=== PATIENT | male | born 1970 | race Caucasian/White ===

== ENCOUNTER 2016-11-28 16:04 | Inpatient (IN) ==
[2016-11-28 16:35] LABS: Basophils # 0.1 10*3/uL (0.0-0.2); Basophils % 0.3 % (0.0-0.8); Eosinophils % 0.1 % (0.00-10.9); Hematocrit 49.8 VOL% (42.0-52.0); Hemoglobin 16.9 GM/DL (14.0-18.0); Immature Granulocytes % 0.6 %; Immature Granulocytes Absolute 0.12 #; Lymphocytes # 2.3 10*3/uL (1.4-4.0); Lymphocytes % 11.6 % (21.2-54.2); Mean Corpuscular HGB Conc 33.9 GM/DL (32-36); Mean Corpuscular Hemoglobin 33 PG (27-34); Mean Corpuscular Volume 97.6 FL (87-102); Mean Platelet Volume 9.3 FL (9.6-12.0); Monocytes # 1.2 10*3/uL (0.11-0.8); Monocytes % 6.3 % (1.7-12.7); Neutrophils # 15.8 10*3/uL (1.4-7.4); Neutrophils % 81.1 % (38.7-73.9); Platelet Count 236 T/CUMM (130-400); Red Cell Distribution Width 12.5 % (9.3-17.3); White Blood Count 19.5 T/CUMM (4-12)
[2016-11-28 16:55] LABS: Apearance,Urine CLOUDY (Clear); Bacteria,Urine Occasional /HPF (Few); Bilirubin,Urine Negative (Negative); Blood, Urine Negative (Negative); Glucose,Urine (UA) 50 mg/dL (Negative); Hyaline Casts,Urine 8 /LPF (0-3); Ketones,Urine 5 mg/dL (Negative); Mucus,Urine Occasional /LPF (Occasional); Nitrite,Urine Negative (Negative); Protein,Urine 30 MG/DL; RBC,Urine 2 /HPF (0-4); Squamous Epithelial Cell,Urine Occasional /HPF (0-10); Urine Color Amber (Yellow); Urine Specific Gravity 1.029 (1.001-1.035); Urine Urobilinogen < 2.0 EU/DL (0.2-1.0); WBC,Urine 5 /HPF (0-6)
[2016-11-28 17:00] LABS: Bilirubin,Total 1.2 MG/DL (0.2-1.0); Calcium 9.7 MG/DL (8.5-10.1); Lactic Acid 1.1 MMOL/L (0.4-2.0); Magnesium 2.9 MG/DL (1.8-2.4); Osmolality,Calculated 284.7 MOS/KG (273-304); Potassium 3.9 MMOL/L (3.5-5.1); Total Protein 8.6 G/DL (6.4-8.3)
[2016-11-28] MEDS ORDERED: SODIUM CHLORIDE 0.9% 2,000 ML IV STA (17:24)
[2016-11-28] MEDS ORDERED: AMPICILLIN/SULBACTAM 3,000 MG in SODIUM CHLORIDE 0.9% 100 ML IV STA (17:33)
--- NOTE | 2016-11-28 17:39 | XRay Report ---
Referring Physician: Rudolph Smith Exam: XR abdomen 2V Date: November 28, 2016 at 5:24 PM Reason: Generalized abdominal pain Comparison: None Findings: There is mild scattered air within the bowel, mainly within the colon. Air-fluid levels are also present. This could reflect enteritis, but there is no evidence of bowel obstruction. No free air is identified. The renal shadows are partially obscured, but no definite renal calculi are identified. No acute osseous process is seen. Impression: There is mild gaseous distention of the bowel, mainly the colon. Air-fluid levels are also seen at the bowel, and this could represent enteritis. There is no evidence of bowel obstruction. PROCEDURE INTERPRETED AT [facility] DEPARTMENT OF RADIOLOGY Final Report Signed by: Dr. Cheryl Sorto
[2016-11-28] MEDS ORDERED: AMPICILLIN/SULBACTAM 3,000 MG VIAL ONE (17:41)
--- NOTE | 2016-11-28 18:29 | CT Report ---
Referring physician: Rudolph Smith EXAM: CT abdomen and pelvis without contrast DATE: November 28, 2016 COMPARISON: None REASON: Generalized abdominal pain TECHNIQUE: Axial images of the abdomen and pelvis were obtained without the use of contrast. Coronal and sagittal reformatted images were also provided. Total DLP is 418.8 mGy*cm. FINDINGS: Lower thorax: There is a calcified granuloma within the left lower lobe and a small hiatal hernia. No consolidation is seen at the lung bases. ABDOMEN: Liver: There is mild diffuse decreased attenuation of the liver, suggesting mild fatty liver infiltration/hepatic steatosis. Gallbladder and bile ducts: The gallbladder is unremarkable. No biliary duct dilatation is present. Pancreas: Unremarkable. Spleen: Unremarkable. Adrenals: The left adrenal gland is unremarkable. There is a 2 cm right adrenal nodule, which demonstrates Hounsfield units of 4. This likely represents an adrenal adenoma. Kidneys and ureters: No hydronephrosis is present, and no renal or ureteral calculi are seen. PELVIS: Bladder: The bladder is poorly distended and difficult to evaluate. Bladder wall inflammation cannot be excluded. Reproductive: The prostate is upper normal in size. ABDOMEN AND PELVIS: Bowel: There is prominent fat stranding and minimal ill-defined free fluid within the left lower pelvis. This abuts the mid sigmoid colon, bladder and a loop of distal small bowel. Wall thickening is suspected at the mid sigmoid colon where there are few diverticula. This is concerning for diverticulitis, but an infectious process, inflammatory bowel disease, other nonspecific inflammatory process or neoplasm is not excluded. There is also mild fluid within the colon, which may be related to a diarrheal illness. Appendix: The appendix is unremarkable. Vasculature: The abdominal aorta is normal in size. Peritoneum: No free air is seen. There is fat stranding and minimal free fluid within the left pelvis as mentioned above. Lymph nodes: No suspicious adenopathy is seen. Abdominal/pelvic wall: Unremarkable. Bones: No acute osseous process is identified. IMPRESSION: 1. There is prominent fat stranding and minimal ill-defined free fluid within the left pelvis. This abuts the mid sigmoid colon, a loop of distal small bowel and the bladder. Mild bowel wall thickening is suspected at the mid sigmoid colon, and there are few colonic diverticula in this region. This likely represents diverticulitis, but other considerations include an infectious process, inflammatory bowel disease, other nonspecific inflammatory process or neoplasm. Follow-up is recommended to confirm resolution. 2. The bladder is poorly distended and difficult to evaluate, but there could be inflammation of the bladder. Correlation with a urinalysis would be helpful. 3. There is mild fluid within the colon, which may be related to a diarrheal illness. 4. 2 cm right adrenal nodule. This likely represents an adrenal adenoma. 5. Mild fatty liver infiltration/hepatic steatosis. The CT exam was performed using one or more of the following dose reduction techniques: Automated exposure control and adjustment of the mA and/or kV according to patient size. PROCEDURE INTERPRETED AT [facility] DEPARTMENT OF RADIOLOGY Final Report Signed by: Dr. Cheryl Sorto
[2016-11-28] MEDS ORDERED: ACETAMINOPHEN 325 MG TABLET PO PRN (19:43)
[2016-11-28] MEDS ORDERED: ONDANSETRON 4 MG/2 ML VIAL IV PRN (19:43)
[2016-11-28] MEDS ORDERED: HYDROmorphone 2 MG/1 ML VIAL ONE (19:47)
[2016-11-28] MEDS: HYDROmorphone 2 MG/1 ML VIAL IV PRN (19:48)
--- NOTE | 2016-11-28 20:12 | General Surg History&Physical ---
Assessment and Plan (1) Diverticulitis Status: Acute Assessment and plan: This patient has a very severe episode of diverticulitis. He does not have any indications for operation emergently. He needs to be resuscitated aggressively and will be admitted to the ICU for IV fluids and antibiotics. He received 2 L of IV fluid bolus in the ER and a Boles catheter will be placed in ICU for urine output monitoring. His blood pressure has come up back into the normal range with 2 L of fluid. We will attempt management with IV fluids and antibiotics initially but if his exam worsens or he decompensates he will need to be taken to the operating room emergently for a colostomy and Brito's procedure. I discussed all this with the patient and his . There is no abscess or fluid collection that needs to be drained percutaneously. Current Visit: Yes History of Present Illness Chief complaint: abdominal pain History of present illness: Mr. Goldman is a 46 year old male who is otherwise healthy presents to the ER with 3 day history of worsening abdominal pain which she describes as suprapubic and left lower quadrant in location. He has never had any episodes like this before. He has had some nausea but no vomiting. He states he has had diarrhea for the last 3 days. He has had some low-grade fevers at home. The pain has at times gone down into his groin but is definitely focused over the left lower abdomen. He states that his urine has been slightly, the last few days but he has been taking enough p.o. intake he thinks. He was evaluated in the ER and found to have a white blood cell count 19,000 and acute renal failure with a creatinine of almost 4 and BUN of 4.1. His lactic acid was normal. He had a low-grade temperature and was hypotensive in the ER. CT scan without contrast demonstrated evidence of diverticulitis with surrounding fluid and inflammatory changes and some fluid in the pelvis. There is no free air seen. The patient denies any medical problems. He has no history of chest pain or shortness of breath at rest or with exertion. He denies any orthopnea. He denies any smoking or alcohol use. He denies any drug use. He lives in [place] with his . Home Medications Medication Instructions Recorded Confirmed Type Lisinopril 2.5 mg PO DAILY 11/28/16 11/28/16 History Allergies Allergy/AdvReac Type Severity Reaction Status Date / Time No Known Allergies Allergy Verified 11/28/16 16:12 Medical,Surgical,& Family Hx - Medical History Cardio: History of: Hypertension - Social History Smoking Status: Never smoker Exam - Constitutional Vitals: Period Temp Pulse Resp BP Sys/Dobbins Pulse Ox Last 24 Hr 85-92 18-20 95-111/68-77 90-97 General appearance: normal weight, no acute distress - Head Head exam: Present: normal inspection - Eye Eye exam: Present: EOMI. Absent: scleral icterus Pupils: Present: VITA - ENT ENT exam: Present: normal exam Mouth exam: Present: normal external inspection, normal voice - Neck Neck exam: Present: normal inspection, trachea midline - Respiratory Respiratory exam: Present: clear to auscultation bilaterally. Absent: accessory muscle use, chest wall tenderness - Cardiovascular Cardiovascular exam: Present: RRR. Absent: systolic murmur, tachycardia - GI/Abdominal GI/Abdominal exam: Present: normal bowel sounds, guarding, tenderness (There is focal left lower quadrant tenderness with guarding and rebound. There is no diffuse peritoneal signs.), rebound, soft. Absent: hernia - Extremities Exam Extremities exam: Present: normal inspection, normal capillary refill - Back Exam Back exam: Present: normal inspection - Neurological Exam Neurological exam: Present: alert, oriented X3 Speech: Present: normal - Skin Skin exam: Present: normal color, warm - Constitutional Constitutional: Present: as per HPI - EENT Nose, mouth and throat: Present: as per HPI - Cardiovascular Cardiovascular: Present: as per HPI - Respiratory Respiratory: Present: as per HPI - Gastrointestinal Gastrointestinal: Present: as per HPI - Genitourinary Genitourinary: Present: as per HPI - Musculoskeletal Musculoskeletal: Present: as per HPI - Neurological Neurological: Present: as per HPI - Endocrine Endocrine: Present: as per HPI Hematologic/Lymphatic: Present: as per HPI Results - Labs CBC & BMP: 11/28/16 16:21 11/28/16 16:21 - Diagnostic Findings Procedure: CT Abdomen and Pelvis: image reviewed by me, report reviewed by me
[2016-11-28] MEDS: LACTATED RINGERS 1,000 ML IV SCH (20:15)
[2016-11-28] MEDS: HEPARIN 5,000 UNIT/1 ML VIAL SUBCUT SCH (20:25)
[2016-11-28] MEDS: PIPERACILLIN/TAZOBACTAM 3,375 MG in SODIUM CHLORIDE 0.9% 100 ML IV SCH (20:32)
[2016-11-28 20:55] LABS: Amorphous Crystals,Urine Occasional /HPF (Few); Apearance,Urine CLOUDY (Clear); Bilirubin,Urine Negative (Negative); Blood, Urine Moderate mg/dL (Negative); Glucose,Urine (UA) Negative (Negative); Hyaline Casts,Urine 28 /LPF (0-3); Ketones,Urine Negative (Negative); Nitrite,Urine Negative (Negative); Protein,Urine 100 MG/DL; Urine Color Amber (Yellow); Urine Specific Gravity 1.025 (1.001-1.035); Urine Urobilinogen < 2.0 EU/DL (0.2-1.0)
[2016-11-29] MEDS: HYDROmorphone 2 MG/1 ML VIAL IV PRN ×6 (00:16→21:36)
[2016-11-29] MEDS: LACTATED RINGERS 1,000 ML IV SCH ×4 (01:19→17:48)
[2016-11-29] MEDS: HEPARIN 5,000 UNIT/1 ML VIAL SUBCUT SCH ×3 (05:14→21:29)
[2016-11-29] MEDS: PIPERACILLIN/TAZOBACTAM 3,375 MG in SODIUM CHLORIDE 0.9% 100 ML IV SCH ×3 (05:16→21:23)
[2016-11-29 07:49] LABS: Basophils % 0.2 % (0.0-0.8); Eosinophils % 0.2 % (0.00-10.9); Hematocrit 40.8 VOL% (42.0-52.0); Immature Granulocytes % 0.4 %; Immature Granulocytes Absolute 0.06 #; Lymphocytes # 1.8 10*3/uL (1.4-4.0); Lymphocytes % 13.1 % (21.2-54.2); Mean Corpuscular HGB Conc 33.6 GM/DL (32-36); Mean Corpuscular Hemoglobin 33 PG (27-34); Mean Corpuscular Volume 99.3 FL (87-102); Mean Platelet Volume 9.8 FL (9.6-12.0); Monocytes # 1.3 10*3/uL (0.11-0.8); Monocytes % 9.4 % (1.7-12.7); Neutrophils # 10.5 10*3/uL (1.4-7.4); Neutrophils % 76.7 % (38.7-73.9); Red Blood Count 4.11 MC/CUMM (3.8-5.5); Red Cell Distribution Width 12.5 % (9.3-17.3); White Blood Count 13.7 T/CUMM (4-12)
[2016-11-29 07:51] LABS: Hemoglobin 13.7 GM/DL (14.0-18.0)
[2016-11-29 07:52] LABS: Platelet Count 185 T/CUMM (130-400)
[2016-11-29 07:55] LABS: Calcium 8.8 MG/DL (8.5-10.1); Osmolality,Calculated 289.1 MOS/KG (273-304); Potassium 3.6 MMOL/L (3.5-5.1)
[2016-11-29] MEDS: PANTOPRAZOLE 40 MG VIAL IV SCH (09:15)
--- NOTE | 2016-11-29 11:02 | General Surgery Progress Note ---
Assessment and Plan (1) Diverticulitis Status: Acute Assessment and plan: The patient is responding well to nonoperative management of his diverticulitis. I will remove his Boles catheter today and we will transfer him to a floor bed and decrease his IV fluids. Continue bowel rest for today and IV antibiotics. Repeat labs tomorrow Current Visit: Yes Subjective Patient reports: Present: no new complaints, feels better, still having pain, pain is less, no flatus, no bowel movement, afebrile. Absent: nausea, vomiting Narrative: The patient is urinating well overnight. His urine output was upwards of 80- 100 cc/h and has cleared up completely. Creatinine is down to 1.4. Vital signs have normalized. Exam - Constitutional Vitals: Period Temp Pulse Resp BP Sys/Dobbins Pulse Ox Last 24 Hr 97.7 F-100.3 F 69-96 12-22 95-128/66-90 90-98 General appearance: normal weight, no acute distress - Head Head exam: Present: normal inspection, normocephalic - Eye Eye exam: Present: EOMI Pupils: Present: VITA - ENT ENT exam: Present: normal exam Mouth exam: Present: normal external inspection, normal voice - Neck Neck exam: Present: normal inspection, trachea midline - Respiratory Respiratory exam: Present: clear to auscultation bilaterally. Absent: accessory muscle use, chest wall tenderness - Cardiovascular Cardiovascular exam: Present: RRR. Absent: systolic murmur, tachycardia - GI/Abdominal GI/Abdominal exam: Present: normal bowel sounds, tenderness (Decrease tenderness left lower quadrant), soft. Absent: distended, guarding, rebound - Extremities Exam Extremities exam: Present: normal inspection, normal capillary refill - Back Exam Back exam: Present: normal inspection - Neurological Exam Neurological exam: Present: alert, oriented X3 Speech: Present: normal - Skin Skin exam: Present: normal color, warm Results - Labs CBC & BMP: 11/29/16 07:01 11/29/16 07:01
--- NOTE | 2016-11-29 15:18 | Emergency Department Note ---
IRadhika Sierra, am scribing for, and in the presence of, Tevin Smith MD 17:25. Luis Fulton Doug C, MD, personally performed the services described in this documentation, ascribed by Vanessa Garrido in my presence, and it is both accurate and complete [id number] . Arrival <Stephanie Damian - Last Filed: 11/28/16 19:51> - Arrival ED Nursing Triage Note: Pt c/o lower abd/groin/testicle pain with nausea x 2 days. Mode of Arrival: Wheelchair Limitations: No Limitations Source: Patient, Significant other - History of Present Illness Onset (ago): day(s) Consistency: constant Severity: moderate Severity scale (1-10): 4 Quality: sharp <Tevin Smith - Last Filed: 11/29/16 15:18> - Arrival Chief Complaint: Abdominal / Flank Pain Stated Complaint: abd pain and groin Time Seen by Provider: 11/28/16 17:21 - History of Present Illness HPI Narrative: Patient is a 46-year-old white male presents emergency room with lower abdominal pain started 2 days ago. He has not had any fever with it. Patient states she has noticed that he has some urinary frequency and urgency but no dysuria. He states it seems to hurt worse when he gets up and walks about. Patient denies nausea, vomiting or diarrhea. He has not seen any blood in his stool and he denies melena. He has never had any prostate problems to his knowledge. He states his testicles were sore but not swollen. (Tevin Smith) Allergies/Adverse Reactions: Allergies Allergy/AdvReac Type Severity Reaction Status Date / Time No Known Allergies Allergy Verified 11/28/16 16:12 Home Medications: Home Medications Medication Instructions Recorded Confirmed Type Lisinopril 2.5 mg PO DAILY 11/28/16 11/28/16 History Review of System - Review of System 12 point system: reviewed and no additional remarkable complaints except as stated - Review of System Constitutional: Present: diaphoresis, fever, other (painful to walk) Respiratory: Absent: cough Cardiovascular: Absent: chest pain Gastrointestinal: Present: abdominal pain (lower abdominal pain), nausea, vomiting, constipation Genitourinary male: Present: frequency, testicular pain (abdominal pain radiates to testical), other (testicular swelling). Absent: urgency, dysuria Musculoskeletal: Absent: arm pain, back pain, leg pain, neck pain Skin: Absent: rash Neurological: Absent: headache Psychiatric: Absent: anxiety <SmithTevin - Last Filed: 11/29/16 15:18> Medical,Surgical,& Family Hx - Medical History Cardio: History of: Hypertension - Social History Smoking Status: Never smoker <Tevin Smith Roby - Last Filed: 11/29/16 15:18> Exam - General General appearance: alert, in no apparent distress - Head Head exam: Present: atraumatic, normocephalic - Eye Eye exam: Present: PERRL, EOMI - ENT ENT exam: Present: mucous membranes moist. Absent: mucous membranes dry - Neck Neck exam: Present: full ROM. Absent: tenderness - Chest Chest inspection: Present: symmetric chest wall rise. Absent: tenderness - Respiratory Respiratory exam: Present: normal lung sounds bilaterally. Absent: respiratory distress - Cardiovascular Cardiovascular exam: Present: regular rate, normal rhythm, normal heart sounds - Abdominal Exam Abdominal exam: Present: soft, tenderness (both lower quadrant abdominal pain), rebound (slight rebound) - Rectal Exam Rectal exam: Present: prostate tenderness (The prostate is soft and a bit boggy) . Absent: normal prostate - Extremities Exam Extremities exam: Present: full ROM. Absent: tenderness - Back Exam Back exam: Present: full ROM. Absent: tenderness - Neurological Exam Neurological exam: Present: alert, oriented X3, CN II-XII intact. Absent: motor sensory deficit - Psychiatric Psychiatric exam: Present: normal affect, normal mood - Skin Skin exam: Present: warm, dry <SmithTevin - Last Filed: 11/29/16 15:18> Vital Signs: Vital Signs Temperature 97.7 F 11/29/16 08:00 Pulse Rate 95 H 11/29/16 14:00 Respiratory Rate 21 11/29/16 14:00 Blood Pressure 154/92 11/29/16 14:00 O2 Sat by Pulse Oximetry 92 L 11/29/16 14:00 Course <Stephanie Damian - Last Filed: 11/28/16 19:51> <Tevin Smith - Last Filed: 11/29/16 15:18> Course Narrative: pt to be admitted to DR Colvin . (Stephanie Damian) Patient's laboratory, clinical presentation and radiographic findings were discussed with Dr. Lauri Colvin. He will see the patient here in the emergency room and evaluate for admission (Tevin Smith) Results - Labs CBC & BMP: 11/28/16 16:21 11/28/16 16:21 <Stephanie Damian - Last Filed: 11/28/16 19:51> - Labs CBC & BMP: 11/29/16 07:01 11/29/16 07:01 Lab Results: I have reviewed the patients labs - Diagnostic Findings Procedure: CT Abdomen and Pelvis: report reviewed by me (Patient with prominent stranding in the pelvis and lower abdomen.) <Tevin Smith - Last Filed: 11/29/16 15:18> - Labs Labs: Laboratory Tests 11/28/16 11/28/16 11/28/16 16:21 16:21 16:21 WBC 19.5 H MPV 9.3 L Neut % (Auto) 81.1 H Lymph % (Auto) 11.6 L Neut # (Auto) 15.8 H [place] # (Auto) 1.2 H Anion Gap 17.9 H BUN 41 H Creatinine 3.90 H Magnesium 2.9 H Total Bilirubin 1.20 H ALT 65 H Total Protein 8.6 H Globulin 4.6 H Albumin/Globulin Ratio 0.8 L Urine Urobilinogen < 2.0 H (Vanessa Garrido) Laboratory Tests 11/28/16 11/28/16 11/28/16 16:21 16:21 16:21 WBC 19.5 H MPV 9.3 L Neut % (Auto) 81.1 H Lymph % (Auto) 11.6 L Neut # (Auto) 15.8 H [place] # (Auto) 1.2 H Anion Gap 17.9 H BUN 41 H Creatinine 3.90 H Magnesium 2.9 H Total Bilirubin 1.20 H ALT 65 H Total Protein 8.6 H Globulin 4.6 H Albumin/Globulin Ratio 0.8 L Urine Urobilinogen < 2.0 H (Tevin Smith) Disposition <Stephanie Damian - Last Filed: 11/28/16 19:51> Case discussed with: patient, patient's family Time of Disposition: 18:04 <Tevin Smith - Last Filed: 11/29/16 15:18> Clinical Impression: Peritonitis, Acute diverticulitis Disposition: Still a Patient Condition: Guarded
[2016-11-29] MEDS: PROMETHAZINE 25 MG/1 ML VIAL IM PRN (21:36)
[2016-11-30] MEDS: PROMETHAZINE 25 MG/1 ML VIAL IM PRN ×2 (01:43→07:15)
[2016-11-30] MEDS: HYDROmorphone 2 MG/1 ML VIAL IV PRN ×3 (01:43→20:22)
[2016-11-30] MEDS: LACTATED RINGERS 1,000 ML IV SCH ×2 (01:50→11:23)
[2016-11-30] MEDS: HEPARIN 5,000 UNIT/1 ML VIAL SUBCUT SCH ×3 (04:40→18:45)
[2016-11-30] MEDS: PIPERACILLIN/TAZOBACTAM 3,375 MG in SODIUM CHLORIDE 0.9% 100 ML IV SCH ×3 (04:45→18:44)
[2016-11-30 06:54] LABS: Basophils % 0.4 % (0.0-0.8); Eosinophils % 0.3 % (0.00-10.9); Hemoglobin 12.6 GM/DL (14.0-18.0); Immature Granulocytes % 0.4 %; Immature Granulocytes Absolute 0.04 #; Lymphocytes # 1.9 10*3/uL (1.4-4.0); Lymphocytes % 18.9 % (21.2-54.2); Mean Corpuscular HGB Conc 33.2 GM/DL (32-36); Mean Corpuscular Hemoglobin 33 PG (27-34); Mean Corpuscular Volume 99.5 FL (87-102); Mean Platelet Volume 10.1 FL (9.6-12.0); Monocytes # 1.3 10*3/uL (0.11-0.8); Monocytes % 12.9 % (1.7-12.7); Neutrophils # 6.6 10*3/uL (1.4-7.4); Neutrophils % 67.1 % (38.7-73.9); Platelet Count 207 T/CUMM (130-400); Red Blood Count 3.82 MC/CUMM (3.8-5.5); White Blood Count 9.8 T/CUMM (4-12)
[2016-11-30 07:34] LABS: Calcium 8.6 MG/DL (8.5-10.1); Magnesium 2.2 MG/DL (1.8-2.4); Osmolality,Calculated 280.4 MOS/KG (273-304); Potassium 3.5 MMOL/L (3.5-5.1)
[2016-11-30] MEDS: PANTOPRAZOLE 40 MG VIAL IV SCH (09:16)
--- NOTE | 2016-11-30 11:02 | Physician Query Form ---
CLICK EDIT DOCUMENT TO SELECT QUERY ANSWER --> OK --> SIGN Chanel Santiago RN Clinical Boat Engine Mechanic W) [phone] (f) [phone] [email or web address]: Make your selection(s) from the choices in EACH section by typing an "x" and enter comments in the comment section. Please use your independent medical judgment in providing your response. This request does not imply that any particular answer is desired or expected. CLINICAL INDICATORS: (Providers should not edit this section) Based on lab results of creatinine on admission of 3.90 with a GFR of 22 and decreased to 0.90. Pt. treated with IV fluids. Clarify which of the following most accurately represents the patient's renal status: ( ) Acute kidney injury (non-traumatic) (x) Acute renal failure ( ) Acute renal failure with underlying Chronic Kidney Disease (CKD) - please provide stage below ( ) CKD - please provide stage below ( ) Other, please specify: ( ) Clinically unable to determine Chronic Kidney Disease Stages Source: National Kidney Disease Foundation ( ) Stage I (eGFR > or = 90) ( ) Stage II (eGFR 60 - 89) ( ) Stage III (eGFR 30 - 59) ( ) Stage IV (eGFR 15 - 29) ( ) Stage V (eGFR < 15 or dialysis) COMMENTS: Use of terms such as suspected, likely, or probable (associated with a specific diagnosis that is being evaluated, monitored, or treated as if it exists) are acceptable and can be restated in the discharge summary if not ruled out. MTDD
--- NOTE | 2016-11-30 13:13 | General Surgery Progress Note ---
Assessment and Plan (1) Diverticulitis Status: Acute Assessment and plan: The patient continues to improve with normalization of his white blood cell count but he is having low-grade temperatures. He is responding well to nonoperative management and we will advance his diet to a liquid diet today and repeat lab work tomorrow. Continue IV antibiotics today. His creatinine has normalized. Current Visit: Yes Subjective Patient reports: Present: no new complaints, feels better, still having pain, pain is less, afebrile. Absent: nausea, vomiting Exam - Constitutional Vitals: Period Temp Pulse Resp BP Sys/Dobbins Pulse Ox Last 24 Hr 98.2 F-100.1 F 79-95 17-24 107-154/68-93 92-97 General appearance: normal weight, no acute distress - Head Head exam: Present: normal inspection, normocephalic - Eye Eye exam: Present: EOMI Pupils: Present: VITA - ENT ENT exam: Present: normal exam Mouth exam: Present: normal external inspection, normal voice - Neck Neck exam: Present: normal inspection, trachea midline - Respiratory Respiratory exam: Present: clear to auscultation bilaterally. Absent: accessory muscle use, chest wall tenderness - Cardiovascular Cardiovascular exam: Present: RRR. Absent: systolic murmur, tachycardia - GI/Abdominal GI/Abdominal exam: Present: normal bowel sounds, tenderness (decreased tenderness compared to yesterday), soft. Absent: distended, rebound - Extremities Exam Extremities exam: Present: normal inspection, normal capillary refill - Back Exam Back exam: Present: normal inspection - Neurological Exam Neurological exam: Present: alert, oriented X3 Speech: Present: normal - Skin Skin exam: Present: normal color, warm Results - Labs CBC & BMP: 11/30/16 05:10 11/30/16 05:10
[2016-11-30] MEDS: DEXT 5% NACL 0.45% KCL 20 MEQ 20 MEQ/1,000 ML BAG IV SCH (19:12)
[2016-12-01] MEDS: HYDROmorphone 2 MG/1 ML VIAL IV PRN ×2 (01:04→20:39)
[2016-12-01] MEDS: PIPERACILLIN/TAZOBACTAM 3,375 MG in SODIUM CHLORIDE 0.9% 100 ML IV SCH (02:48)
[2016-12-01] MEDS: HEPARIN 5,000 UNIT/1 ML VIAL SUBCUT SCH ×3 (02:48→20:38)
[2016-12-01] MEDS: DEXT 5% NACL 0.45% KCL 20 MEQ 20 MEQ/1,000 ML BAG IV SCH (03:41)
[2016-12-01] MEDS: PANTOPRAZOLE 40 MG VIAL IV SCH (09:18)
--- NOTE | 2016-12-01 09:30 | General Surgery Progress Note ---
Assessment and Plan (1) Diverticulitis Status: Acute Assessment and plan: The patient is responding well to nonoperative management. Advance to regular diet and change to p.o. antibiotics. DC IV fluids. Possible discharge home tomorrow. Current Visit: Yes Subjective Patient reports: Present: no new complaints, still having pain, pain is less, tolerating liquids well, flatus, no bowel movement, afebrile. Absent: nausea, vomiting Narrative: The patient had a low-grade temperature of 100.0 yesterday at 1600. He feels much better daily and feels hungry today. Is passing gas but no bowel movements yet. Exam - Constitutional Vitals: Period Temp Pulse Resp BP Sys/Dobbins Pulse Ox Last 24 Hr 98.5 F-100.0 F 72-97 17-20 130-154/73-93 94-98 General appearance: normal weight, no acute distress - Head Head exam: Present: normal inspection, normocephalic - Eye Eye exam: Present: EOMI. Absent: scleral icterus Pupils: Present: VITA - ENT ENT exam: Present: normal exam Mouth exam: Present: normal external inspection, normal voice - Neck Neck exam: Present: normal inspection, trachea midline - Respiratory Respiratory exam: Present: clear to auscultation bilaterally. Absent: accessory muscle use, chest wall tenderness - Cardiovascular Cardiovascular exam: Present: RRR. Absent: systolic murmur, tachycardia - GI/Abdominal GI/Abdominal exam: Present: tenderness (Minimal left lower quadrant tenderness) , soft. Absent: rebound - Extremities Exam Extremities exam: Present: normal inspection, normal capillary refill - Back Exam Back exam: Present: normal inspection - Neurological Exam Neurological exam: Present: alert, oriented X3 Speech: Present: normal - Skin Skin exam: Present: normal color, warm Results - Labs CBC & BMP: 11/30/16 05:10 11/30/16 05:10
[2016-12-01] MEDS: CIPROFLOXACIN 500 MG TABLET PO SCH ×2 (11:03→20:37)
[2016-12-01] MEDS: metroNIDAZOLE 500 MG TABLET PO SCH ×2 (14:05→20:37)
[2016-12-01] MEDS: PROMETHAZINE 25 MG/1 ML VIAL IM PRN (20:40)
[2016-12-02] MEDS: HEPARIN 5,000 UNIT/1 ML VIAL SUBCUT SCH (03:24)
--- NOTE | 2016-12-02 08:54 | Discharge Summary ---
Hospital Course - Hospital Course Hospital Course: This patient was admitted with acute diverticulitis with some fluid in the pelvis and around the sigmoid colon. He responded promptly to antibiotic therapy and resuscitation and his kidney function normalized. He was having some abdominal distention and had not passed gas or had a bowel movement last day on the day of his discharge so an abdominal x-ray was ordered and he was given MiraLAX but if the x-ray is unremarkable he will be discharged home on 12/02. Diagnosis - Discharge Diagnosis (1) Diverticulitis Status: Acute Discharge Plan - Discharge Data Disposition: Disch To Home/Self Care Condition at Discharge: Stable Discharge Diet: other (Low fiber diet) Activity: resume usual activities as tolerated Hygiene: may shower Weight Bearing at Discharge: weight bear as tolerated Driving: no restrictions Contact your physician if you experience:: fever over 101, Difficulty voiding, Redness or swelling, Nausea/Vomiting, Shortness of breath, Bleeding, pain uncontrolled by pain medications - Discharge Medications [place] TAB [Flagyl Cap/Tab] 500 mg PO TID #42 tablet Ciprofloxacin Tab [Cipro Tab] 500 mg PO Q12HR #28 tablet HYDROcodone/ACETAMIN 7.5-325 [[place] 7.5-325] 1 tablet PO Q4H PRN #30 tablet PRN Reason: Pain Moderate (4-7) Continue Lisinopril 2.5 mg PO DAILY - Follow Up or Referral Follow Up: Lauri Colvin MD [Physician] - 2 Weeks - Forms/Instructions Exam - Constitutional Vitals: Period Temp Pulse Resp BP Sys/Dobbins Pulse Ox Last 24 Hr 98.1 F-98.6 F 63-71 18-20 128-135/72-90 95-97 General appearance: normal weight, no acute distress - Head Head exam: Present: normal inspection, normocephalic - Eye Eye exam: Present: EOMI Pupils: Present: VITA, normal accommodation - ENT ENT exam: Present: normal exam - Neck Neck exam: Present: normal inspection - Respiratory Respiratory exam: Present: clear to auscultation bilaterally. Absent: accessory muscle use, chest wall tenderness - Cardiovascular Cardiovascular exam: Present: regular rate and rhythm. Absent: systolic murmur , tachycardia - GI/Abdominal GI/Abdominal exam: Present: normal bowel sounds, soft. Absent: tenderness, rebound - Extremities Exam Extremities exam: Present: normal inspection, normal capillary refill - Back Exam Back exam: Present: normal inspection - Neurological Exam Neurological exam: Present: alert, oriented X3 - Psychiatric Psychiatric exam: Present: normal affect, normal mood - Skin Skin exam: Present: normal color, warm Discharge Results Procedures and tests throughout hospitalization: Pending Orders 12/02/16 08:51 XR abdomen 2V Routine DS: Provider Date of admission: 11/28/16 18:40 Primary care physician: . No PCP Attending physician on admission: Lauri Colvin MD Consults: 11/28/16 20:01 Consult to Pharmacy [CONS] Routine Reason for Pharmacy Consult: Adjust Meds Renal Funct Discharging clinician: Lauri Colvin MD Expected date of discharge: 12/02/16
[2016-12-02] MEDS ORDERED: POLYETHYLENE GLYCOL POWDER 17 GM PACK PO SCH (09:00)
[2016-12-02] MEDS: PANTOPRAZOLE 40 MG VIAL IV SCH (09:38)
[2016-12-02] MEDS: metroNIDAZOLE 500 MG TABLET PO SCH (09:38)
[2016-12-02] MEDS: CIPROFLOXACIN 500 MG TABLET PO SCH (09:38)
--- NOTE | 2016-12-02 09:39 | XRay Report ---
XR abdomen 2V Clinical Information: Abdominal Pain abdominal distention Comparison: 11/28/2016 Findings: Bowel gas pattern is nonspecific and within normal limits. No abnormally dilated small bowel loops are identified to suggest obstruction. There is no free air identified. Scattered fecal material is noted throughout colon, which is otherwise nondilated. No abnormal focal soft tissue masses or calcific densities are identified in the abdomen or pelvis. Lung bases appear predominantly clear. There is no acute osseous abnormality. No suspicious osseous lesions are identified. Impression: No acute radiographic abnormality in the abdomen. A mild degree of fecal stasis/constipation is suspected. PROCEDURE INTERPRETED AT [facility] DEPARTMENT OF RADIOLOGY Final Report Signed by: Omar Díaz
[2016-12-02 10:13] VITALS: BP 145/61
== END 2016-12-02 11:45 | disposition home or self-care (01) | DRG 392 ==
LOC: N.ED 16:04 → N.EDINP 18:40 → N.CC 19:13 → N.3E 11-29 16:05
PROVIDERS: ADMIT Surgery; ATTEND Surgery